=== PATIENT | male | born 1950 | race Caucasian/White ===

== ENCOUNTER 2019-04-22 16:44 | Outpatient (CLI) | payer BC ==
--- NOTE | 2019-04-22 17:35 | ULT ---
EXAM: Bilateral lower extremity venous Doppler PROVIDED CLINICAL HISTORY: Lower extremity edema FINDINGS: Grayscale and color Doppler sonography with spectral analysis was performed of the common femoral, fe moral, popliteal, posterior tibial, greater saphenous and profunda femoral veins bilaterally. The evaluated venous structures demonstrate a normal sonographic appearance. IMPRESSION: No sonographic evidence for lower extremity deep venous thrombosis.
== END 2019-04-22 16:45 | disposition home or self-care (01) ==
LOC: ULT 16:44
PROVIDERS: ATTEND Student in an Organized Health Care Education/Training Program
DX: R60.0 Localized edema (principal); M79.605 Pain in left leg
CPT/HCPCS: 93970